=== PATIENT | male | born 1960 | race Caucasian/White ===

== ENCOUNTER 2018-10-10 14:12 | Outpatient (CLI) | payer BC ==
[~2018-10-10 14:12] MED LIST: Gadobenate Dimeglumine 529 MG/1 ML (20ML VIAL) ONE
--- NOTE | 2018-10-10 17:16 | MRI ---
MRI OF THE PELVIS WITH AND WITHOUT IV CONTRAST: 10/10/18 INDICATION: Elevated PSA in a 57-year-old male. COMPARISON: None. TECHNIQUE: Multiplanar and multisequence MR images were obtained in the pelvis with and without IV contrast util izing prostate cancer specific protocol. 20 mL of Multihance was administered for the examination. Th e examination was interpreted at a separate 3D [employer] workstation for multiparameteric evaluation. FINDINGS: The prostate measures 4.8 x 3.5 x 3.3 cm giving estimated prostatic volume of 27.10 mL. There are linear areas of T2 hypointensity within the peripheral zone without corresponding restricte d diffusion or abnormal contrast enhancement. There is a 1.3 x 0.6 cm T2 hypointense lesion seen within the right mid central gland with associated abnormal dynamic contrast enhancement and poorly defined borders that is suspicious. No additional f ocal lesion is evident within the central gland itself. There are scattered BPH nodules within the ce ntral gland. There is no evidence to suggest neurovascular spread of disease. No extracapsular extension is eviden t. There is a 9 mm lymph node adjacent to the left common femoral vessels. There is wall thickening invo lving the bladder. No free fluid is evident. There is some mild varicosities seen within the lower pe lvis. No suspicious bone marrow signal abnormality is evident. There are fat containing inguinal marlon ias, left greater than right. On the precontrast T1 weighted images there is some peripheral T1 hypointensity within the peripheral zone likely related to residual hemorrhage from a prior biopsy. IMPRESSION: PI-RADS category 4 - high (clinically significant cancer is likely to be present). There is a 1.3 cm T2 hypointense ill-defined nodule within the right mid central gland with associate d restricted diffusion and abnormal enhancement that is suspicious. Imaged directed biopsy may be hel pful for further characterization. POS: TPC
== END 2018-10-10 14:13 | disposition home or self-care (01) ==
LOC: TBSIIMAG 14:12
PROVIDERS: ATTEND Urology
DX: R97.20 Elevated prostate specific antigen [PSA] (principal); N40.0 Benign prostatic hyperplasia without lower urinary tract symptoms
CPT/HCPCS: 72197; A9577

== ENCOUNTER 2018-10-20 09:30 | Outpatient (CLI) | payer BC ==
[2018-10-20 10:35] LABS: Hemoglobin 16.3 g/dL (14.0-18.0); Mean Corpuscular HGB CONC 34.1 g/dL (32.0-36.0); Mean Corpuscular Hemoglobin 30.3 pg (27.0-31.0); Mean Corpuscular Volume 88.9 fL (78.0-98.0); Platelet Count 177 thou/uL (130-400); RBC Distribution Width 12.2 % (11.5-14.5); Red Blood Cell (RBC) Count 5.38 mill/uL (4.70-6.10); White Blood Cell (WBC) Count 5.9 thou/uL (4.8-10.8)
[2018-10-20 10:41] LABS: Prothrombin Time 12.9 SEC (12.0-14.7)
[2018-10-20 10:56] LABS: Anion Gap 13 mmol/L (10-20); BUN (Urea Nitrogen) 16 mg/dL (8.4-25.7); Calc. Creatinine Clearance 0 mL/min (70-130); Calcium 9.8 mg/dL (7.8-10.44); Carbon Dioxide 28 mmol/L (22-29); Chloride 103 mmol/L (98-107); Estimated GFR-MDRD 73; Glucose 96 mg/dL (70-105); Potassium 4.4 mmol/L (3.5-5.1); Sodium 140 mmol/L (136-145)
--- NOTE | 2018-10-23 08:58 | EKG ---
Test Reason : Blood Pressure : / mmHG Vent. Rate : 061 BPM Atrial Rate : 061 BPM P-R Int : 152 ms QRS Dur : 094 ms QT Int : 396 ms P-R-T Axes : 024 000 001 degrees QTc Int : 398 ms Normal sinus rhythm Normal ECG No previous ECGs available Confirmed by DR. Jacob AIKEN ([id number]) on 10/23/2018 8:58:46 AM Referred By: DIDIER Confirmed By:DR. Jacob AIKEN
== END 2018-10-20 09:31 | disposition home or self-care (01) ==
LOC: LABBT 09:30
PROVIDERS: ATTEND Urology
DX: Z01.818 Encounter for other preprocedural examination (principal); N40.1 Benign prostatic hyperplasia with lower urinary tract symptoms; R97.20 Elevated prostate specific antigen [PSA]; R35.0 Frequency of micturition
CPT/HCPCS: 80048; 81001; 85027; 85610; 85730; 87081; 87086; 93005; 93010

== ENCOUNTER 2018-10-25 05:44 | Day surgery (SDC) | payer BC ==
[2018-10-20 09:53] VITALS: BMI 33.2
[2018-10-25] MEDS ORDERED: Sodium Chloride 0.9% 100 ML ONE (06:23)
[2018-10-25] MEDS ORDERED: Levofloxacin 500 mg/D5W 100 ml Premix Bag ONE (06:23)
[2018-10-25] MEDS ORDERED: cefTRIAXone\\ROCEPHIN 2 GM VIAL ONE (06:23)
[2018-10-25] MEDS ORDERED: Fentanyl 100 MCG/2 ML VIAL ONE (08:54)
[2018-10-25] MEDS ORDERED: Lidocaine 1% (PF) 30 ML VIAL ONE (09:05)
[2018-10-25] MEDS ORDERED: Tamsulosin HCl 0.4 MG CAP ONE (10:55)
[2018-10-25] MEDS ORDERED: Phenazopyridine HCl 97.5 MG TABLET ONE (11:00)
--- NOTE | 2018-10-25 12:17 | OP ---
DATE OF PROCEDURE: 10/25/2018 PREOPERATIVE DIAGNOSES: 1. A 57-year-old male with history of elevated prostate-specific antigen, status post prostate biopsy negative for malignancy, persistent elevated prostate- specific antigen of 6.37. 2. MRI demonstrating region of interest PI-RADS 4, 1.3 cm x 6 mm in the right mid central gland with no evidence of extracapsular extension or lymphadenopathy. 3. History of benign prostatic hypertrophy with mild incomplete void. POSTOPERATIVE DIAGNOSES: 1. A 57-year-old male with history of elevated prostate-specific antigen, status post prostate biopsy negative for malignancy, persistent elevated prostate- specific antigen of 6.37. 2. MRI demonstrating region of interest PI-RADS 4, 1.3 cm x 6 mm in the right mid central gland with no evidence of extracapsular extension or lymphadenopathy. 3. History of benign prostatic hypertrophy with mild incomplete void. PROCEDURES PERFORMED: Flexible cystoscopy, transrectal ultrasound, standard 12- core prostate biopsy, volume study, MRI fusion biopsy of region of interest. ANESTHESIA: LMA. COMPLICATIONS: None apparent. DISPOSITION: To recovery room in stable condition. SPECIMEN: 1. 12 standard core needle biopsy of the prostate. 2. Four biopsies obtained from the region of interest MRI fusion. FINDINGS: 1. No evidence of urethral stricture. 2. Mild bilobar hyperplasia of the prostate with no evidence of intravesical median lobe. 3. Bladder grossly unremarkable. 4. Bilateral ureteral orifices about 4 mm proximal to the bladder neck. INDICATIONS FOR PROCEDURE AND HISTORY: Mr. Cardoso is a pleasant 57-year-old male with unremarkable HUEY, with history of elevated PSA. He initially underwent prostate biopsy standard 12 core on March demonstrating no evidence of malignancy, incidental focal acute inflammation. He presented with a PSA of 5.25, subsequently, the PSA has increased to 5.6, which I informed the patient to proceed with MRI fusion, which he declined. With subsequent followup, his PSA increased to 6.37. With encouragement, he underwent 3T MRI evaluation demonstrating PI-RADS 4 lesion as above and advised regarding targeted biopsy. Risks and complications of the procedure were reviewed with him in detail including, but not limited to: Bleeding, pain, infection, injury to adjacent organs, urosepsis, significant blood per rectum, hematuria, requiring secondary procedure, urosepsis. All questions were answered to satisfaction and desired to proceed. DESCRIPTION OF PROCEDURE: After an informed consent was signed, the patient was taken to the operating room, placed in a supine position with the genital area prepped and draped in the usual surgical sterile fashion. Bilateral GURPREET hose with SCDs and broad-spectrum antibiotics were provided. A flexible cystoscope was advanced at this time, which demonstrated normal anteroposterior urethra. No evidence of urethral stricture was noted. The prostatic urethra demonstrated bilobar hyperplasia, mildly obstructing. The bladder was entered, which demonstrated no evidence of intravesical median lobe. The ureteral orifices were about 4 mm away from the bladder neck with no evidence of bladder pathology of concern. UOs are single system orthotopic. At this time, the flexible cystoscope was removed and a 16-Slovenian Borja catheter was inserted per urethra with a 10 mL. He was placed in the left lateral decubitus position with all pressure points padded and protected. A standard transrectal ultrasound was probe, was placed and we obtained a volume study first. Measurement of his urethra demonstrated 3.24 cm in length, width of 5.29, height of 3.15, prostate volume of 28 g. At this time, we then proceeded to fuse our MRI with the ultrasound images. Region of interest was seen and we obtained 4 needle specimens from region of interest targeted biopsy. Subsequently, we obtained standard 12 core. He tolerated the procedure well. There was no significant blood from his Borja catheter. It was removed. He will undergo voiding trial, and hopefully, will be discharged without an indwelling Borja catheter. He is to continue his Flomax. No aspirin, ibuprofen products are advised. Provided ciprofloxacin 500 mg one p.o. b.i.d. for 5 days. He will return to clinic next week to review pathology. Job ID: [id number] [facility]
[2018-10-25] MEDS ORDERED: Ondansetron PF 4 MG/2 ML Vial ONE (16:30)
[2018-10-25] MEDS ORDERED: PROPOFOL 200 MG/20 ML VIAL ONE (16:30)
[2018-10-25] MEDS ORDERED: PHENYLEPHRINE-NS 100 MCG/ML 10 ML SYRINGE ONE (16:30)
[2018-10-25] MEDS ORDERED: Lidocaine 1% PF 5 ML VIAL ONE (16:30)
== END 2018-10-25 12:55 | disposition home or self-care (01) ==
LOC: SDC 05:44
PROVIDERS: ATTEND Urology
PROC: 0VB03ZX Excision of Prostate, Percutaneous Approach, Diagnostic (ICD-10-PCS; principal; 2018-10-25)
PROC: 0TJB8ZZ Inspection of Bladder, Via Natural or Artificial Opening Endoscopic (ICD-10-PCS; principal; 2018-10-25)
DX: N41.1 Chronic prostatitis (principal); N40.1 Benign prostatic hyperplasia with lower urinary tract symptoms; R39.14 Feeling of incomplete bladder emptying; R35.0 Frequency of micturition; E78.00 Pure hypercholesterolemia, unspecified; J30.1 Allergic rhinitis due to pollen; Z79.899 Other long term (current) drug therapy
CPT/HCPCS: 88305; J0696; J1956; J2001; J3010; J3490

== ENCOUNTER 2019-08-09 08:23 | Outpatient (CLI) | payer OTHER ==
[2019-08-09] MEDS ORDERED: Magnevist 469MG/ML 20 ML VIAL ONE (09:57)
--- NOTE | 2019-08-09 11:57 | MRI ---
MRI OF THE PROSTATE WITHOUT AND WITH CONTRAST: COMPARISON: 10/10/2018. HISTORY: Elevated PSA. Negative prostate biopsy. TECHNIQUE: Multiplanar, multisequence MR images were obtained in the prostate without and with IV contrast. FINDINGS: There is mild hypertrophy of the central gland consistent with BPH. Prostate volume is approximately 18 mL. No suspicious low T2 signal lesion is seen in the prostate. No restricted diffusion is seen in the peripheral zone of the prostate. No low signal was seen in the ADC map in the peripheral zon e of the prostate. The seminal vesicles are intact. The neurovascular bundles are intact. No pelvic adenopathy is seen . No suspicious enhancement is seen in the prostate. No marrow signal abnormality is present. Ther e is a small fat-containing right inguinal hernia. IMPRESSION: PIRADS category 2 - low likelihood that a clinically significant cancer is present. POS: EAA
== END 2019-08-09 08:24 | disposition home or self-care (01) ==
LOC: TBSIIMAG 08:23
PROVIDERS: ATTEND Urology
DX: R97.20 Elevated prostate specific antigen [PSA] (principal); F40.240 Claustrophobia; Z98.890 Other specified postprocedural states
CPT/HCPCS: 72197; A9579

== ENCOUNTER 2019-08-29 06:36 | Day surgery (SDC) | payer BC ==
[2019-08-23 13:02] VITALS: BMI 32.1
[2019-08-29] MEDS ORDERED: Levofloxacin 500 mg/D5W 100 ml Premix Bag ONE (08:25)
[2019-08-29] MEDS ORDERED: Sodium Chloride 0.9% 100 ML ONE (08:25)
[2019-08-29] MEDS ORDERED: cefTRIAXone\\ROCEPHIN 1 GM VIAL ONE (08:25)
[2019-08-29] MEDS ORDERED: Fentanyl 100 MCG/2 ML VIAL ONE (08:31)
[2019-08-29] MEDS ORDERED: Midazolam HCl 2 mg/2 ml Vial ONE (08:31)
[2019-08-29] MEDS ORDERED: Tamsulosin HCl 0.4 MG CAP ONE (09:33)
--- NOTE | 2019-08-29 11:16 | OP ---
DATE OF PROCEDURE: 08/29/2019 PREOPERATIVE DIAGNOSES: 1. A 58-year-old male with history of elevated PSA, unremarkable HUEY with persistent elevation of PSA, increased velocity. 2. MRI negative for region of interest. POSTOPERATIVE DIAGNOSES: 1. A 58-year-old male with history of elevated PSA, unremarkable HUEY with persistent elevation of PSA, increased velocity. 2. MRI negative for region of interest. PROCEDURES PERFORMED: Transrectal ultrasound-guided prostate biopsy extended core, transrectal ultrasound volume study, Borja catheter placement. COMPLICATIONS: None apparent. DISPOSITION: To recovery room in stable condition. ANESTHESIA: TIVA. SPECIMENS: Extended core prostate biopsy, total of 24 cores obtained. ESTIMATED BLOOD LOSS: Minimal. INDICATIONS FOR PROCEDURE AND HISTORY: Mr. Cardoso is a 58-year-old pleasant male , with history of unremarkable HUEY, elevated PSA, he initially presented with PSA of 5.25, previous biopsy negative. He underwent MRI 3T demonstrating PI-RADS-2 with no region of interest, therefore presents today for extended core prostate biopsy. He was informed regarding options of observation as MRI is negative; given his age with no significant past medical history, advised regarding extended core biopsy, which he desired to proceed. Risks and complications the procedure reviewed including but not limited to: Gross hematuria blood per rectum protracted, requiring secondary procedure, urinary retention, sepsis, UTI, anemia, discomfort DESCRIPTION OF PROCEDURE: After an informed consent was signed, the patient was taken to the operating room, placed in a supine position with the genital area prepped and draped in the usual surgical sterile fashion. An 18-Slovak 10 mL indwelling Borja catheter was placed passed without difficulty demonstrating clear yellow urine. The patient was then subsequently transitioned to left lateral decubitus position. He has been provided preoperative broad- spectrum antibiotic therapy. Using a transrectal ultrasound probe, we passed this uneventfully. His digital rectal exam performed today again demonstrates no discrete nodularity of concern. Prostate volume study was performed demonstrating: Urethral length of 3.03 cm, width of 4.7, height of 3.66, volume at 27.5 g. No significant lesions were seen on ultrasound. At this time, we performed our standard 12 core prostate biopsies. Subsequently, we did pass further biopsies including bilateral medial corresponding to each biopsy, and also, three cores periurethral from each region. A total of 24 prostate cores were obtained, each sent separately, labeled. The transrectal ultrasound probe was then subsequently removed with minimal blood per rectum. His indwelling Borja catheter has no significant hematuria, trace of concern. I informed the patient that due to extended core, there was a possibility of urinary retention. He would like a trial of voiding trial. He was in full understanding if unable to empty complete or significant gross hematuria, he will be discharged with indwelling Borja catheter. Ciprofloxacin for a course of 7 days advised, he will return to clinic next at 11:00 a.m. to review pathology. Addendum, patient voided marisela-tinged urine without significant issues. Discharged home. He was informed that he may increase his Flomax to twice daily if sensation of incomplete emptying. Job ID: [id number] [facility]
[2019-08-29] MEDS ORDERED: PROPOFOL 200 MG/20 ML VIAL ONE (11:21)
== END 2019-08-29 11:38 | disposition home or self-care (01) ==
LOC: SDC 06:36
PROVIDERS: ATTEND Urology
PROC: 0VB03ZX Excision of Prostate, Percutaneous Approach, Diagnostic (ICD-10-PCS; principal; 2019-08-29)
DX: N40.1 Benign prostatic hyperplasia with lower urinary tract symptoms (principal); R35.0 Frequency of micturition; E78.00 Pure hypercholesterolemia, unspecified; K40.20 Bilateral inguinal hernia, without obstruction or gangrene, not specified as recurrent; Z79.899 Other long term (current) drug therapy
CPT/HCPCS: 88305; J0696; J1956; J2250; J2704; J3010; J3490

== ENCOUNTER 2020-04-30 08:26 | Outpatient (CLI) | payer OTHER ==
--- NOTE | 2020-04-30 10:30 | MRI ---
MR OF THE PELVIS WITH AND WITHOUT CONTRAST INDICATION: Prostate Cancer. There is an elevated PSA of 11.69. COMPARISON: Prior MRI of the prostate dated August 09, 2019. TECHNIQUE: Multiplanar, multisequence MR images were obtained of the pelvis with and without IV contr ast. 20 cc of MultiHance was utilized for the examination. The examination was reviewed on a separate [employer] 3-D workstation for multiplanar metric evaluation. FINDINGS: Prostate size: The prostate measured 5.1 x 3.4 x 3.6cm. 30.81 cc. Peripheral zone: No area of restricted diffusion is seen within the peripheral zone. Central zone: No suspicious abnormality or focal lesion is identified. There are mild BPH nodules see n within the central zone. Neural vasculature: No evidence of neurovascular invasion Regional lymphadenopathy: There is a mildly prominent lymph node seen adjacent to the left common fem oral vein which is stable measuring 11 mm. Dynamic contrast enhancement: Negative. Osseous structures: No suspicious osseous lesion is identified. Additional findings: There is a fat-containing inguinal hernia bilaterally, right greater than left.. IMPRESSION: 1. PIRADS 2- Low (clinically significant cancer is unlikely to be present.)
== END 2020-04-30 08:27 | disposition home or self-care (01) ==
LOC: TBSIIMAG 08:26
PROVIDERS: ATTEND Urology
DX: R97.20 Elevated prostate specific antigen [PSA] (principal)
CPT/HCPCS: 72197

== ENCOUNTER 2021-08-13 08:42 | Outpatient (CLI) | payer BC | END 2021-08-13 08:43 | disposition home or self-care (01) | LOC: TBSIIMAG 08:42 | PROVIDERS: ATTEND Urology | DX: R97.20 Elevated prostate specific antigen [PSA] (principal); Z98.890 Other specified postprocedural states | CPT/HCPCS: 72197; 82565 ==

== ENCOUNTER 2021-10-16 08:15 | Outpatient (CLI) | payer BC ==
[2021-10-16 09:10] LABS: Mean Corpuscular HGB CONC 34.2 g/dL (32.0-36.0); Mean Corpuscular Volume 87.6 fl (81.2-95.1); Mean Platelet Volume 9.9 fl (7.4-10.4); Platelet Count 199 10x3/uL (150-450); RBC Distribution Width 12.9 % (11.5-14.5); Red Blood Cell (RBC) Count 5.34 10x6/uL (4.32-5.72); White Blood Cell (WBC) Count 5.9 10x3/uL (3.5-10.5)
[2021-10-16 09:14] LABS: Bilirubin Neg (Negative); Blood, Urine Negative (Negative); Clarity Clear (Clear); Glucose, Urine (Dipstick) Normal (Negative); Ketone, Urine Negative (Negative); Leukocyte Negative (Negative); Nitrite Negative (Negative); Protein, Urine (Dipstick) Negative (Neg-Trace); Specific Gravity, Urine 1.005 (1.002-1.036); Urobilinogen Normal mg/dL (Less than 2)
[2021-10-16 09:21] LABS: PTT 27.9 sec (22.0-33.0); Prothrombin Time 10.5 sec (9.5-12.1)
[2021-10-16 09:24] LABS: Anion Gap 13 mmol/L (10-20); BUN (Urea Nitrogen) 16 mg/dL (8.4-25.7); Calc. Creatinine Clearance 0 mL/min (70-130); Calcium 9.1 mg/dL (7.8-10.44); Carbon Dioxide 27 mmol/L (22-29); Chloride 105 mmol/L (98-107); Estimated GFR 88; Glucose 118 mg/dL (70-105); Potassium 4.4 mmol/L (3.5-5.1); Sodium 141 mmol/L (136-145)
[2021-10-16 09:28] LABS: Bacteria/HPF Rare-Few HPF (None Seen); RBC/HPF None Seen HPF (0-3); Squamous Epithelial 0-3 HPF (0-3); WBC/HPF 0-3 HPF (0-3)
== END 2021-10-16 08:16 | disposition home or self-care (01) ==
LOC: LABBT 08:15
PROVIDERS: ATTEND Urology
DX: Z01.818 Encounter for other preprocedural examination (principal); K40.20 Bilateral inguinal hernia, without obstruction or gangrene, not specified as recurrent; R97.20 Elevated prostate specific antigen [PSA]; N40.1 Benign prostatic hyperplasia with lower urinary tract symptoms; R35.0 Frequency of micturition; R33.8 Other retention of urine; N13.8 Other obstructive and reflux uropathy; F40.240 Claustrophobia; Z98.890 Other specified postprocedural states
CPT/HCPCS: 71046; 80048; 81001; 85027; 85610; 85730; 87086; 93005; 93010

== ENCOUNTER 2021-10-21 05:58 | Day surgery (SDC) | payer BC ==
[2021-10-19 10:30] VITALS: BMI 32.8
[2021-10-21] MEDS ORDERED: fentaNYL Citrate/PF 100 MCG/2 ML SYRINGE ONE (06:47)
[2021-10-21] MEDS ORDERED: Levofloxacin 500 mg/D5W 100 ml Premix Bag ONE (06:47)
[2021-10-21] MEDS ORDERED: Propofol 500 MG/50 ML VIAL ONE (06:48)
[2021-10-21] MEDS ORDERED: cefTRIAXone\\ROCEPHIN 2 GM VIAL ONE (07:20)
[2021-10-21] MEDS ORDERED: Sodium Chloride 0.9% 100 ML ONE (07:21)
== END 2021-10-21 09:30 | disposition home or self-care (01) ==
LOC: SDC 05:58
PROVIDERS: ATTEND Urology
PROC: 0VB03ZX Excision of Prostate, Percutaneous Approach, Diagnostic (ICD-10-PCS; principal; 2021-10-21)
DX: N40.0 Benign prostatic hyperplasia without lower urinary tract symptoms (principal); Z79.82 Long term (current) use of aspirin; Z79.899 Other long term (current) drug therapy
CPT/HCPCS: G0416; J0696; J1956; J2704; J3490

== ENCOUNTER 2022-07-15 12:44 | Outpatient (CLI) | payer BC ==
[2022-07-15 13:38] LABS: Bilirubin Neg (Negative); Blood, Urine Negative (Negative); Clarity Clear (Clear); Glucose, Urine (Dipstick) Normal (Negative); Ketone, Urine Negative (Negative); Leukocyte Negative (Negative); Nitrite Negative (Negative); Protein, Urine (Dipstick) Negative (Neg-Trace); Urobilinogen Normal mg/dL (Less than 2)
[2022-07-15 13:43] LABS: Hemoglobin 15.7 g/dL (13.5-17.5); Mean Corpuscular HGB CONC 33.8 g/dL (32.0-36.0); Mean Corpuscular Hemoglobin 29.7 pg (27.0-33.0); Mean Corpuscular Volume 87.9 fl (81.2-95.1); Mean Platelet Volume 9.5 fl (7.4-10.4); Platelet Count 217 10x3/uL (150-450); RBC Distribution Width 13.2 % (11.5-14.5); Red Blood Cell (RBC) Count 5.29 10x6/uL (4.32-5.72); White Blood Cell (WBC) Count 6.5 10x3/uL (3.5-10.5)
[2022-07-15 13:56] LABS: RBC/HPF 0-3 HPF (0-3); Squamous Epithelial 0-3 HPF (0-3)
[2022-07-15 13:59] LABS: Bacteria/HPF Rare-Few HPF (None Seen); WBC/HPF None Seen HPF (0-3)
[2022-07-15 14:02] LABS: Anion Gap 17 mmol/L (10-20); BUN (Urea Nitrogen) 13 mg/dL (8.4-25.7); Calc. Creatinine Clearance 0 mL/min (70-130); Calcium 9.2 mg/dL (7.8-10.44); Carbon Dioxide 27 mmol/L (22-29); Chloride 102 mmol/L (98-107); Estimated GFR 84; Glucose 96 mg/dL (70-105); INR-International Normal Ratio 0.9; PTT 28.8 sec (22.0-33.0); Potassium 4.3 mmol/L (3.5-5.1); Prothrombin Time 10.1 sec (9.5-12.1); Sodium 142 mmol/L (136-145)
== END 2022-07-15 12:45 | disposition home or self-care (01) ==
LOC: LABBT 12:44
PROVIDERS: ATTEND Urology
DX: Z01.818 Encounter for other preprocedural examination (principal); R97.20 Elevated prostate specific antigen [PSA]
CPT/HCPCS: 71046; 80048; 81001; 84153; 85027; 85610; 85730; 87086; 93005; 93010

== ENCOUNTER 2022-07-28 05:51 | Day surgery (SDC) | payer BC ==
[2022-07-26 11:18] VITALS: BMI 32.1
[2022-07-28] MEDS ORDERED: Sodium Chloride 0.9% 100 ML ONE (06:23)
[2022-07-28] MEDS ORDERED: Levofloxacin 500 mg/D5W 100 ml Premix Bag ONE (06:23)
[2022-07-28] MEDS ORDERED: cefTRIAXone (ROCEPHIN) 2 GM VIAL ONE (06:23)
[2022-07-28] MEDS ORDERED: Lidocaine 1% MPF 2 ML VIAL ONE (06:24)
[2022-07-28] MEDS ORDERED: Midazolam HCl 2 mg/2 ml Vial ONE (06:44)
[2022-07-28] MEDS ORDERED: Famotidine/PF 20 mg/2ml Vial ONE (06:44)
[2022-07-28] MEDS ORDERED: Propofol 500 MG/50 ML VIAL ONE (06:44)
[2022-07-28] MEDS ORDERED: fentaNYL 50 mcg/mL 1 mL Vial ONE (06:44)
[2022-07-28] MEDS ORDERED: Lidocaine 1% PF 5 ML VIAL ONE (07:30)
[2022-07-28] MEDS ORDERED: Phenazopyridine HCl 100 MG TAB ONE ×2 (08:09→08:17)
== END 2022-07-28 10:25 | disposition home or self-care (01) ==
LOC: SDC 05:51
PROVIDERS: ATTEND Urology
PROC: 0VB03ZX Excision of Prostate, Percutaneous Approach, Diagnostic (ICD-10-PCS; principal; 2022-07-28)
DX: C61 Malignant neoplasm of prostate (principal); N42.31 Prostatic intraepithelial neoplasia; N40.1 Benign prostatic hyperplasia with lower urinary tract symptoms; R35.0 Frequency of micturition; R39.14 Feeling of incomplete bladder emptying; E78.00 Pure hypercholesterolemia, unspecified; Z79.82 Long term (current) use of aspirin; Z79.899 Other long term (current) drug therapy
CPT/HCPCS: G0416; J0696; J1956; J2250; J2704; J3010; J3490; S0028

== ENCOUNTER 2022-12-01 08:41 | Outpatient (CLI) | payer BC ==
[2022-12-01 10:29] LABS: Bilirubin Neg (Negative); Blood, Urine Negative (Negative); Clarity Clear (Clear); Glucose, Urine (Dipstick) Normal (Negative); Ketone, Urine Negative (Negative); Leukocyte Negative (Negative); Nitrite Negative (Negative); Protein, Urine (Dipstick) Negative (Neg-Trace); Specific Gravity, Urine 1.005 (1.005-1.030); Urobilinogen Normal mg/dL (Less than 2)
[2022-12-01 11:13] LABS: Bacteria/HPF None Seen HPF (None Seen); RBC/HPF None Seen HPF (0-3); Squamous Epithelial None Seen HPF (0-3); WBC/HPF None Seen HPF (0-3)
[2022-12-01 11:47] LABS: Hematocrit 48.1 % (38.8-50.0); Hemoglobin 16.2 g/dL (13.5-17.5); Mean Corpuscular HGB CONC 33.7 g/dL (32.0-36.0); Mean Corpuscular Hemoglobin 29.7 pg (27.0-33.0); Mean Corpuscular Volume 88.3 fl (81.2-95.1); Mean Platelet Volume 10.3 fl (7.4-10.4); Platelet Count 208 10x3/uL (150-450); RBC Distribution Width 13.3 % (11.5-14.5); Red Blood Cell (RBC) Count 5.45 10x6/uL (4.32-5.72); White Blood Cell (WBC) Count 4.8 10x3/uL (3.5-10.5)
[2022-12-01 12:18] LABS: Anion Gap 14 mmol/L (10-20); BUN (Urea Nitrogen) 18 mg/dL (8.4-25.7); Calc. Creatinine Clearance 0 mL/min (70-130); Calcium 9.1 mg/dL (7.8-10.44); Carbon Dioxide 28 mmol/L (22-29); Chloride 103 mmol/L (98-107); Estimated GFR 80; Glucose 98 mg/dL (70-105); Potassium 4.7 mmol/L (3.5-5.1); Sodium 140 mmol/L (136-145)
[2022-12-01 12:50] LABS: INR-International Normal Ratio 0.9; PTT 27.5 sec (22.0-33.0); Prothrombin Time 9.9 sec (9.5-12.1)
== END 2022-12-01 08:42 | disposition home or self-care (01) ==
LOC: LABBT 08:41
PROVIDERS: ATTEND Internal Medicine Infectious Disease
DX: Z01.818 Encounter for other preprocedural examination (principal); C61 Malignant neoplasm of prostate; R97.20 Elevated prostate specific antigen [PSA]; N40.1 Benign prostatic hyperplasia with lower urinary tract symptoms; R35.0 Frequency of micturition; R33.8 Other retention of urine; N13.8 Other obstructive and reflux uropathy; K40.20 Bilateral inguinal hernia, without obstruction or gangrene, not specified as recurrent; E78.5 Hyperlipidemia, unspecified; E65 Localized adiposity; N52.9 Male erectile dysfunction, unspecified; F40.240 Claustrophobia; Z98.890 Other specified postprocedural states
CPT/HCPCS: 71046; 80048; 81001; 85027; 85610; 85730; 87086; 93005; 93010

== ENCOUNTER 2022-12-28 08:43 | Outpatient (CLI) | payer BC | END 2022-12-28 08:44 | disposition home or self-care (01) | LOC: RAD 08:43 | PROVIDERS: ATTEND Urology | DX: C61 Malignant neoplasm of prostate (principal) | CPT/HCPCS: 51600; 74430 ==